=== PATIENT | female | born 1990 | race Caucasian/White ===

== ENCOUNTER 2020-02-21 15:56 | Emergency (ER) | payer OTHER ==
[~2020-02-21] VITALS: Ht 162.6 cm; Wt 70.3 kg
[2020-02-21 16:00] VITALS: BP 142/87
[2020-02-21] MEDS ORDERED: KETOROLAC 60 MG/2 ML VIAL IM ONE (16:20)
[2020-02-21] MEDS ORDERED: ONDANSETRON 4 MG/2 ML VIAL IM ONE (16:20)
--- NOTE | 2020-02-21 16:39 | NUR ---
29 Y/O FEMALE C/O SUDDEN ONSET OF EPIGASTRIC PAIN + N/V/D THAT BEGAN TODAY AROUND 1PM. NO RUQ TENDERNESS NOTED. PT IS DIAPHORETIC AND PAIN IS 10/10, SHARP AND NONRADIATING. RESP EVEN AND UNLABORED. PT DENIES ANY COUGH/FEVER/SOB. NO PMH NKA
[2020-02-21] MEDS ORDERED: PANTOPRAZOLE 40 MG TABEC PO ONE (16:50)
[2020-02-21] MEDS ORDERED: DICYCLOMINE HCL LIQUID 10 MG/5 ML UDC PO ONE (16:50)
[2020-02-21] MEDS ORDERED: ALUMINUM HYD/MAG/SIMETHICONE 30 ML UDC PO ONE (16:50)
[2020-02-21] MEDS ORDERED: LIDOCAINE VISCOUS 2% 20 ML UDC PO ONE (16:50)
--- NOTE | 2020-02-21 17:15 | NUR ---
PT IS RESTING IN BED, STATES PAIN HAS DECREASED TO A 4/10. NO EMESIS NOTED AT THIS TIME.
[2020-02-21 17:55] VITALS: BP 142/87
--- NOTE | 2020-02-21 17:56 | NUR ---
Patient discharged with v/s stable. Written and verbal after care instructions given and explained. Patient alert, oriented and verbalized understanding of instructions. Ambulatory with steady gait. All questions addressed prior to discharge. ID band removed. Patient advised to follow up with PMD. Rx of MAALOX, PROTONIX given. Patient educated on indication of medication including possible reaction and side effects. Opportunity to ask questions provided and answered.
== END 2020-02-21 17:56 | disposition home or self-care (01) ==
LOC: MED 15:56
DX: K29.00 Acute gastritis without bleeding (principal); R11.2 Nausea with vomiting, unspecified
CPT/HCPCS: 81002; 81025; 96372; 99284; J1885; J2405